=== PATIENT | male | born 1950 | race African-American/Black ===

== ENCOUNTER 2018-05-05 15:02 | Emergency (ER) | payer MEDICARE ==
--- NOTE | 2018-05-05 16:04 | ER Document Report ---
ED Medical Screen (RME) - General Chief Complaint: Flank Pain Stated Complaint: RIGHT SIDE PAIN Time Seen by Provider: 05/05/18 15:59 TRAVEL OUTSIDE OF THE [place] IN LAST 30 DAYS: No - HPI Notes: 05/05/18 16:03 End-stage dialysis patient received dialysis yesterday coming in for right flank pain - Related Data Allergies/Adverse Reactions: gabapentin Allergy (Verified 05/05/18 15:03) Review of Systems - Review of Systems Genitourinary: Flank pain Physical Exam - Vital signs Vitals: Temp Pulse Resp BP Pulse Ox 97.8 F 80 20 124/68 98 05/05/18 15:11 05/05/18 15:11 05/05/18 15:11 05/05/18 15:11 05/05/18 15:11 - General General appearance: Appears well In distress: None - Respiratory Respiratory status: No respiratory distress Chest status: Nontender Breath sounds: Normal Chest palpation: Normal Course - Re-evaluation Re-evalutation: 05/05/18 16:04 Patient does not make urine - Vital Signs Vital signs: Temp Pulse Resp BP Pulse Ox 97.8 F 80 20 124/68 98 05/05/18 15:11 05/05/18 15:11 05/05/18 15:11 05/05/18 15:11 05/05/18 15:11 Doctor's Discharge - Discharge Referrals: RAHUL JAIMES DPM [Primary Care Provider] - Follow up as needed
[2018-05-05 16:48] LABS: ABSOLUTE EOSINOPHILS # (AUTO) 0.1 10^3/uL (0.0-0.6); ABSOLUTE LYMPHOCYTES (AUTO) 2.4 10^3/uL (0.5-4.7); ABSOLUTE MONOCYTES (AUTO) 0.7 10^3/uL (0.1-1.4); ABSOLUTE NEUT (AUTO) 4.9 10^3/uL (1.7-8.2); BASOPHILS % (AUTO) 0.6 % (0-2); HEMATOCRIT 46.4 % (37.9-51.0); HEMOGLOBIN 14.9 g/dL (13.5-17.0); LYMPHOCYTES % (AUTO) 29.7 % (13-45); MEAN CORPUSCULAR HEMOGLOBIN 29.6 pg (27.0-33.4); MEAN CORPUSCULAR VOLUME 93 fl (80-97); MONOCYTES % (AUTO) 8.3 % (3-13); PLATELET COUNT 208 10^3/uL (150-450); RED BLOOD COUNT 5.02 10^6/uL (4.35-5.55); RED CELL DISTRIBUTION WIDTH 17.9 % (11.5-14.0); SEGMENTED NEUTROPHILS % (AUTO) 60.4 % (42-78); TOTAL CELLS COUNTED % (AUTO) 100 %; WHITE BLOOD COUNT 8.2 10^3/uL (4.0-10.5)
[2018-05-05 17:02] LABS: ANION GAP 15 (5-19); BLOOD UREA NITROGEN 42 mg/dL (7-20); CALCIUM 8.9 mg/dL (8.4-10.2); CARBON DIOXIDE 27 mmol/L (22-30); CHLORIDE 100 mmol/L (98-107); GLUCOSE 114 mg/dL (75-110); POTASSIUM 3.5 mmol/L (3.6-5.0); SODIUM 142.1 mmol/L (137-145)
--- NOTE | 2018-05-05 17:12 | RADIOLOGY REPORT (SQ) ---
EXAM DESCRIPTION: CT LTD RENAL STONE PROTOCOL ON COMPLETED DATE/TIME: 05/05/2018 4:48 pm REASON FOR STUDY: right flank pain COMPARISON: None. TECHNIQUE: CT scan of the abdomen and pelvis performed without intravenous or oral contrast. Images reviewed with lung, soft tissue, and bone windows. Reconstructed coronal and sagittal MPR images revi ewed. All images stored on PACS. All CT scanners at this facility use dose modulation, iterative reconstruction, and/or weight based d osing when appropriate to reduce radiation dose to as low as reasonably achievable (ALARA). [facility]: Dose Right [facility]: CareDose [facility]: Dose Right [facility]: Teradose 4D [facility]: [employer] RADIATION DOSE: CT Rad equipment meets quality standard of care and radiation dose reduction techniq ues were employed. CTDIvol: 8.8 mGy. DLP: 516 mGy-cm.mGy. LIMITATIONS: None. FINDINGS: LOWER CHEST: Subsegmental atelectasis in the lower lobes. Gynecomastia. NON-CONTRASTED LIVER, SPLEEN, ADRENALS: Evaluation limited by lack of IV contrast. No identified sign ificant masses. PANCREAS: No masses. No peripancreatic inflammatory changes. GALLBLADDER: No identified stones by CT criteria. No inflammatory changes to suggest cholecystitis. RIGHT KIDNEY AND URETER: 3 cm mass in the right kidney. Density measures 37 Hounsfield units. No s ignificant calcifications. No hydronephrosis or hydroureter. LEFT KIDNEY AND URETER: No suspicious masses. Assessment limited by lack of IV contrast. No signifi cant calcifications. No hydronephrosis or hydroureter. AORTA AND RETROPERITONEUM: No aneurysm. No retroperitoneal masses or adenopathy. BOWEL AND PERITONEAL CAVITY: No obvious masses or inflammatory changes. No free fluid. APPENDIX: Normal. PELVIS, BLADDER, AND ABDOMINAL WALL:No abnormal masses. No free fluid. Bladder normal. BONES: No significant findings. OTHER: No other significant finding. IMPRESSION: 1. Gynecomastia. 2. 3 cm well-circumscribed mass in the right kidney. This could represent a hyperdense cyst or rufina d mass. Recommend ultrasound for further evaluation. 3. No acute findings are seen in the abdomen or pelvis. COMMENT: Quality ID # [id number]: Final reports with documentation of one or more dose reduction techniques (e.g., Automated exposure control, adjustment of the mA and/or kV according to patient size, use of iterative reconstruction technique) TECHNICAL DOCUMENTATION: JOB ID: [id number] [employer]- All Rights Reserved Reading location - IP/workstation name: [email or web address]
[2018-05-05] MEDS ORDERED: ACETAMINOPHEN 325 MG TABLET PO ONE (17:24)
[2018-05-05] MEDS ORDERED: LIDOCAINE 5% (700 MG) TRANSDERMAL ADH..PATCH TP ONE (17:24)
--- NOTE | 2018-05-05 17:24 | ER Document Report ---
ED General - General Chief Complaint: Flank Pain Stated Complaint: RIGHT SIDE PAIN Time Seen by Provider: 05/05/18 15:59 TRAVEL OUTSIDE OF THE [place] IN LAST 30 DAYS: No - HPI Patient complains to provider of: Right flank pain Notes: Patient coming in for evaluation of right flank pain states ongoing for the last 48 hours. Patient states pain increases with movement and touch. Patient states by sitting still he is not experiencing any pain. Patient is a renal dialysis patient with a fistula with a palpable thrill in the right forearm. Patient also has left BKA. Patient otherwise resting comfortably upon my evaluation denies any trauma denies any recent events to explain the pain. Patient does not make urine denies any fevers chills nausea vomiting diarrhea - Related Data Allergies/Adverse Reactions: gabapentin Allergy (Verified 05/05/18 15:03) Past Medical History - Social History Smoking Status: Unknown if Ever Smoked Family History: Reviewed & Not Pertinent Patient has suicidal ideation: No Patient has homicidal ideation: No Renal/ Medical History: Denies: Hx Peritoneal Dialysis Past Surgical History: Reports: Hx Orthopedic Surgery Review of Systems - Review of Systems Constitutional: No symptoms reported EENT: No symptoms reported Cardiovascular: No symptoms reported Respiratory: No symptoms reported Gastrointestinal: No symptoms reported Genitourinary: Flank pain Male Genitourinary: No symptoms reported Musculoskeletal: No symptoms reported Skin: No symptoms reported Hematologic/Lymphatic: No symptoms reported Neurological/Psychological: No symptoms reported -: Yes All other systems reviewed and negative Physical Exam - Vital signs Vitals: Temp Pulse Resp BP Pulse Ox 97.8 F 80 20 124/68 98 05/05/18 15:11 05/05/18 15:11 05/05/18 15:11 05/05/18 15:11 05/05/18 15:11 Interpretation: Normal - General General appearance: Appears well, Alert - HEENT Head: Normocephalic, Atraumatic Eyes: Normal Pupils: PERRL - Respiratory Respiratory status: No respiratory distress Chest status: Nontender Breath sounds: Normal Chest palpation: Normal - Cardiovascular Rhythm: Regular Heart sounds: Normal auscultation Murmur: No - Abdominal Inspection: Normal Distension: No distension Bowel sounds: Normal Tenderness: Nontender Organomegaly: No organomegaly - Back Back: Normal, Nontender Notes: Patient with pinpoint tenderness on the right flank region just above the iliac wing no nodules no skin rashes seen - Extremities General upper extremity: Normal inspection, Nontender, Normal color, Normal ROM , Normal temperature General lower extremity: Normal inspection, Nontender, Normal color, Normal ROM , Normal temperature, Normal weight bearing. No: Clementine's sign - Neurological Neuro grossly intact: Yes Cognition: Normal Orientation: AAOx4 [place] Coma Scale Eye Opening: Spontaneous [place] Coma Scale Verbal: Oriented [place] Coma Scale Motor: Obeys Commands [place] Coma Scale Total: 15 Speech: Normal Motor strength normal: LUE, RUE, LLE, RLE Sensory: Normal - Psychological Associated symptoms: Normal affect, Normal mood - Skin Skin Temperature: Warm Skin Moisture: Dry Skin Color: Normal Course - Re-evaluation Re-evalutation: 05/06/18 14:08 CT scan was performed to rule out any signs of kidney stones which was negative that showed a 3 cm kidney mass which patient was unaware patient was told to follow with primary care physician more likely with no white count no fever and normal laboratory studies for the patient do believe this is more muscle skeletal related. Recommended Ultram for pain control Tylenol for pain control lidocaine patches for pain control as well. Also educated patient about use of warm packs ice packs. Patient is understanding will be discharged home. - Vital Signs Vital signs: Temp Pulse Resp BP Pulse Ox 98.0 F 81 18 125/66 99 05/05/18 17:43 05/05/18 17:43 05/05/18 17:43 05/05/18 17:43 05/05/18 17:43 - Laboratory Result Diagrams: 05/05/18 16:38 05/05/18 16:38 Laboratory results interpreted by me: 05/05/18 05/05/18 16:38 16:38 RDW 17.9 H Potassium 3.5 L BUN 42 H Creatinine 11.56 H Est GFR ( Amer) 5 L Est GFR (Non-Af Amer) 4 L Glucose 114 H Discharge - Discharge Clinical Impression: Muscle strain, Right kidney mass Condition: Good Disposition: HOME, SELF-CARE Instructions: Growth or Mass, Pending Workup (OM), Ice Massage (OM), Muscle Strain (OM) Additional Instructions: Your laboratory studies today show no acute findings. CT scan of your abdomen does not show any signs of kidney stones but there is any indication of a 3 cm mass in the right kidney. I do not believe this is what is causing her pain I believe that her pain is coming from a muscle strain with no signs of infectious process or kidney stone in the right flank region. To treat your muscle strain I would recommend Tylenol and pain medication as prescribed he may also use [id number] lidocaine patches. Return to ER symptoms worsen it is important that you follow-up with your primary care physician for further evaluation of this right renal mass that we see on CAT scan today. Prescriptions: Tramadol HCl [Ultram 50 mg Tablet] 50 mg PO ASDIR PRN #20 tablet PRN Reason: Referrals: RAHUL JAIMES DPM [NO LOCAL MD] - Follow up in 3-5 days
[2018-05-05 17:46] VITALS: BP 125/66
== END 2018-05-05 17:43 | disposition home or self-care (01) ==
LOC: ER 15:02
DX: S39.011A Strain of muscle, fascia and tendon of abdomen, initial encounter (principal); N28.89 Other specified disorders of kidney and ureter; R10.9 Unspecified abdominal pain; Z89.512 Acquired absence of left leg below knee; Z99.2 Dependence on renal dialysis; X58.XXXA Exposure to other specified factors, initial encounter
CPT/HCPCS: 99284; 36415; 85025; 80048; 76380; A9270